=== PATIENT | female | born 1965 | race Caucasian/White ===

== ENCOUNTER 2017-05-29 22:06 | Emergency (ER) | payer OTHER, BC ==
[2017-05-29 23:48] VITALS: BP 123/83
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
== END 2017-05-30 00:16 | disposition left against medical advice (07) ==
LOC: MW.ED 22:06
DX: R51 Headache (principal); F17.210 Nicotine dependence, cigarettes, uncomplicated; V49.40XA Driver injured in collision with unspecified motor vehicles in traffic accident, initial encounter; Y92.410 Unspecified street and highway as the place of occurrence of the external cause; Z98.890 Other specified postprocedural states; Z88.2 Allergy status to sulfonamides
CPT/HCPCS: 70450; 70450-26; 72125; 72125-26; 99282; 99284-25